=== PATIENT | female | born 1995 | race Caucasian/White ===

== ENCOUNTER 2017-01-15 18:52 | Emergency (ER) | payer OTHER ==
[~2017-01-15] VITALS: Ht 162.6 cm; Wt 70.4 kg
[2017-01-15 20:12] LABS: HEMATOCRIT 44.4 % (34.6-47.8); HEMOGLOBIN 14.9 g/dL (11.7-16.4); WHITE BLOOD COUNT 13.4 x10^3/uL (4.5-13.2)
[2017-01-15 20:23] LABS: ASPARTATE AMINO TRANSFERASE 21 U/L (15-37); BLOOD UREA NITROGEN 9 mg/dL (7-18)
[2017-01-15] MEDS ORDERED: SODIUM CHLORIDE FLUSH 10ML SYR IVF ONE (21:30)
[2017-01-15] MEDS ORDERED: OMNIPAQUE 350 MG/ML, 100ML BOTTLE ONE (21:57)
[2017-01-15 22:30] VITALS: BP 104/62
== END 2017-01-15 23:16 | disposition home or self-care (01) ==
LOC: ED 22:57
DX: N30.00 Acute cystitis without hematuria (principal); R11.2 Nausea with vomiting, unspecified
CPT/HCPCS: 36415; 74177; 80053; 81001; 84703; 85025; 87086; 99285; Q9967

== ENCOUNTER 2017-10-18 07:34 | Outpatient (CLI) | payer OTHER ==
[~2017-10-18] VITALS: Ht 167.6 cm; Wt 66.4 kg
[2017-10-18] MEDS ORDERED: ZOLPIDEM 5MG TABLET ONE (09:22)
[2017-10-18] MEDS ORDERED: ZOLPIDEM 5MG TABLET PO SCH (09:30)
== END 2017-10-18 09:30 | disposition home or self-care (01) ==
LOC: LDOP 07:34
PROVIDERS: ATTEND Obstetrics & Gynecology
DX: O26.893 Other specified pregnancy related conditions, third trimester (principal); R10.9 Unspecified abdominal pain; Z3A.39 39 weeks gestation of pregnancy
CPT/HCPCS: 59025; 99211; G0463

== ENCOUNTER 2017-10-18 23:51 | Outpatient (CLI) | payer OTHER ==
[~2017-10-18] VITALS: Ht 160 cm; Wt 66.0 kg
[2017-10-19 00:39] LABS: MICROSCOPIC INDICATED
[2017-10-19] MEDS ORDERED: LACTATED RINGERS 1,000 ML IVBOLUS ONE (01:30)
[2017-10-19] MEDS ORDERED: ACETAMINOPHEN 325 MG TABLET ONE (01:30)
[2017-10-19] MEDS ORDERED: ACETAMINOPHEN 325 MG TABLET PO ONE (01:30)
[2017-10-19] MEDS ORDERED: CEFTRIAXONE PMX 1GM/50ML 50 ML IV ONE (01:30)
== END 2017-10-19 02:55 | disposition home or self-care (01) ==
LOC: LDOP 23:51
PROVIDERS: ATTEND Obstetrics & Gynecology
DX: O26.833 Pregnancy related renal disease, third trimester (principal); N13.30 Unspecified hydronephrosis; Z3A.39 39 weeks gestation of pregnancy
CPT/HCPCS: 59025; 76770; 81001; 87086; 96360; 99211; J0696; J7120; 87147; G0463